=== PATIENT | male | born 1985 | race Two or more races ===

== ENCOUNTER 2019-12-06 08:34 | Day surgery (SDC) | payer OTHER | END 2019-12-06 12:00 | disposition home or self-care (01) | LOC: AMB-ENDOS 08:34 | PROVIDERS: ATTEND Colon & Rectal Surgery | DX: D13.0 Benign neoplasm of esophagus (principal); K63.5 Polyp of colon; K64.1 Second degree hemorrhoids; K44.9 Diaphragmatic hernia without obstruction or gangrene ==